=== PATIENT | male | born 1995 | race Caucasian/White ===

== ENCOUNTER 2017-11-24 20:52 | Emergency (ER) | payer SELFPAY ==
[~2017-11-24] VITALS: Ht 190.5 cm; Wt 64.0 kg
[2017-11-24 20:56] VITALS: BP 125/84
[2017-11-24] MEDS ORDERED: LIDOCAINE-MPF 2% ,5ML ONE (21:53)
[2017-11-24] MEDS ORDERED: LIDOCAINE 2%, 10ML INFIL ONE (22:00)
== END 2017-11-24 22:48 | disposition home or self-care (01) ==
LOC: ED 22:45
DX: L03.113 Cellulitis of right upper limb (principal)
CPT/HCPCS: 10060; 99283; J3490